=== PATIENT | male | born 1960 | race American Indian/Alaskan Native ===

== ENCOUNTER 2019-07-04 12:33 | Emergency (ER) | payer MEDICAID ==
[2019-07-04 12:52] VITALS: BP 140/84
--- NOTE | 2019-07-04 12:52 | Emergency Department Report ---
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 may take tylenol or ibuprofen. may use ice pack, rest, heating pad. return to the emergency room for any new or worsening symptoms. MSE screening note: Focused history and physical exam performed. ED Disposition for MSE Clinical Impression: Left shoulder pain Qualifiers: Chronicity: acute Qualified Code(s): M25.512 - Pain in left shoulder Disposition: MED SCREENING EXAM-LEFT Is pt being admited?: No Does the pt Need Aspirin: No Condition: Stable Instructions: Shoulder Sprain (ED) Additional Instructions: please follow up with an orthopedic doctor in the next 2-3 days. may take tylenol or ibuprofen. may use ice pack, rest, heating pad. return to the emergency room for any new or worsening symptoms. Referrals: DIANA PAK MD [Staff Physician] - 2-3 Days [facility] [Provider Group] - 2-3 Days Time of Disposition: 12:51 Print Language: GEORGIAN
== END 2019-07-04 13:38 | disposition left against medical advice (07) ==
LOC: ED 12:33
DX: M25.512 Pain in left shoulder (principal)